=== PATIENT | male | born 1970 | race Caucasian/White ===

== ENCOUNTER 2016-11-03 16:23 | Emergency (ER) | payer SELFPAY ==
[2016-11-03 16:41] VITALS: TEMP 98.4
[2016-11-03] MEDS ORDERED: LORazepam 2 MG/ML INJ ONE (17:44)
[2016-11-03] MEDS ORDERED: LORazepam 2 MG/ML INJ IM ONE (17:44)
[2016-11-03] MEDS ORDERED: CHLORDIAZEPOXIDE 25MG PREPK#6 BTL TAKEHOME ONE ×2 (17:45)
--- NOTE | 2016-11-03 17:46 | EDPHY ---
H & P Time Seen by Provider: 11/03/16 17:44 HPI/ROS: HPI: 46-year-old male [facility] with chief concern alcohol withdrawal. He would like to detox and [facility], but did not realize they had no Librium. Presents to ED for Librium to return [facility] the [facility]. Last drink yesterday. Drinks 1 L vodka daily. Was in alcohol rehab x3 months last year in [place]. Reports tremors. Denies dizziness, headache, visual changes, seizures, visual, auditory, or tactile hallucinations, shortness of breath, chest pain, abdominal pain, nausea or vomiting. No history of alcohol withdrawal seizures. ROS:10 point review of systems is negative other than as stated in HPI Past Medical/Surgical History: Alcohol abuse Smoking Status: Former smoker Physical Exam: Temp 36.9, pulse 109, respiratory rate 20, blood pressure 148/76, 95% on room air General: Awake, alert, calm, cooperative. No acute distress. Head: Normalocephalic. Atraumatic. EENT: PERRLA. EOMI. No pallor or injection. Anicteric. No nystagmus. No injection. TMs intact bilaterally with normal landmarks. Oropharynx without redness, exudates, or lesions. Tonsils 2+ bilaterally, no exudates. Neck: Supple, nontender. No lymphadenopathy. Full range of motion. No meningismus. Respiratory: Breathing unlabored. Breath sounds equal bilaterally and clear to auscultation. No adventitious sounds. CV: Chest nontender, atraumatic. Heart rate regular and tachycardic. No murmur , distal pulses 2+ bilaterally. Brisk cap refill all extremities. GI: Abdomen soft, nontender. Bowel sounds normoactive and positive x4 quadrants. Neuro: Alert. Oriented x 3. Speech clear. Tremulous. Tongue fasciculations. Nonfocal cranial nerves throughout. Sensation intact all extremities. Skin: Skin warm, dry, intact. No rashes, abrasions, or lacerations. Skin turgor normal. Extremities: Full range of motion in all 4 extremities. Strength 5+ all extremities. Constitutional: Initial Vital Signs Temperature (C) 36.9 C 11/03/16 16:39 Heart Rate 109 H 11/03/16 16:39 Respiratory Rate 20 11/03/16 16:39 Blood Pressure 148/76 H 11/03/16 16:39 O2 Sat (%) 95 11/03/16 16:39 O2 Delivery Mode Room Air Allergies/Adverse Reactions: No Known Allergies Allergy (Unverified 04/18/13 20:13) Home Medications: Medication Instructions Recorded NK [No Known Home Meds] 11/03/16 Medical Decision Making ED Course/Re-evaluation: 46-year-old male [facility] with chief concern alcohol withdrawal. He would like to go to the [facility] and [facility]. He was in rehab for 3 months last year in [place]. Has no history of alcohol withdrawal seizures. Last drink yesterday. He is given 2 mg IM Ativan here in the ED. He is sent with take-home pack of Librium back to the [facility]. His mother is driving him. He has no dizziness, headache, vomiting, abdominal pain. He is stable for transfer to the [facility]. Differential Diagnosis: Alcohol withdrawal, depression, anxiety - Data Points Medications Given: Discontinued Medications Lorazepam (Ativan Injection) 2 mg IM EDNOW ONE Stop: 11/03/16 17:45 Last Admin: 11/03/16 17:50 Dose: 2 mg Departure - Departure Disposition: Home, Routine, Self-Care Clinical Impression: Alcohol withdrawal Qualifiers: Complication of substance-induced condition: uncomplicated Qualified Code(s): F10.230 - Alcohol dependence with withdrawal, uncomplicated Condition: Good Instructions: Alcohol Withdrawal (ED) Additional Instructions: Plan: Go directly to the [facility] Follow up with primary care when your finished at the [facility] Referrals: NONE *PRIMARY CARE P,. [Primary Care Provider] - As per Instructions [facility],. [Clinic] - As per Instructions
[2016-11-03 18:01] VITALS: BP 130/103; PULSE 103; RESP 16; O2SAT 91
== END 2016-11-03 18:00 | disposition home or self-care (01) ==
DX: F10.230 Alcohol dependence with withdrawal, uncomplicated (principal); Z87.891 Personal history of nicotine dependence
CPT/HCPCS: J2060

== ENCOUNTER 2016-11-05 20:41 | Inpatient (IN) | payer MEDICAID ==
--- NOTE | 2016-11-05 21:38 | EDPHY ---
H & P Time Seen by Provider: 11/05/16 21:37 HPI/ROS: CHIEF COMPLAINT: Yellow skin HISTORY OF PRESENT ILLNESS: This 46-year-old man has a history of alcoholism. His last drink was this past week on Thursday. He has been at detox and comes in today with nausea and when some of his companions at dinner noted that he was yellow. He continues to have nausea and decreased oral intake. He still has a tremor. He did not have any seizures. He denies hallucinating. REVIEW OF SYSTEMS: Eye: no change in vision ENT: no sore throat Cardiac: no chest pain or syncope Pulmonary: no cough or SOB Abdomen: No diarrhea. No abdominal pain. No melena. Musculoskeletal: no back pain Skin: Jaundice. Neuro: no headache, mild tremor at rest Constitutional: no fever : no urinary symptoms A comprehensive 10 point review of systems is otherwise negative aside from elements mentioned in the history of present illness. PAST MEDICAL HISTORY: Alcoholism Social history: Last drink was Thursday General Appearance: Alert and conversant, cooperative. Eyes: Icteric. ENT, Mouth: Normal mucous membranes. Respiratory: Normal respiratory effort, breath sounds equal, lungs are clear to auscultation. Cardiovascular: Regular rate and rhythm. Gastrointestinal: Abdomen is soft and non tender. Hepatomegaly. Neurological: Alert and oriented x3. Normally conversant. Face symmetric, normal movement and sensation in all extremities. Not confused and no asterixis. Mild resting tremor. Skin: Jaundiced. Musculoskeletal: No peripheral edema and no joint swelling. Psychiatric: Not agitated. Emergency Department course/MDM: Labs to include liver function tests and protime. 2212: Labs reviewed including elevated bilirubin and INR. Admit for acute liver failure with GI consult. Thrombocytopenia and coagulopathy with platelet count 39 and INR 1.9, but without signs or symptoms of active bleeding. 2226: Discussed with Gray and Pirrotta. Results discussed with the patient also at this time. Smoking Status: Former smoker Constitutional: Initial Vital Signs Temperature (C) 36.6 C 11/05/16 20:55 Heart Rate 101 H 11/05/16 20:55 Respiratory Rate 17 11/05/16 20:55 Blood Pressure 129/88 H 11/05/16 20:55 O2 Sat (%) 95 11/05/16 20:55 O2 Delivery Mode Room Air Allergies/Adverse Reactions: No Known Allergies Allergy (Unverified 10/07/13 20:13) Home Medications: Medication Instructions Recorded NK [No Known Home Meds] 11/03/16 Medical Decision Making Differential Diagnosis: Differential for hyperbilirubinemia considered including but not limited to gallbladder disease, intrinsic liver disease, hemolysis, common duct obstruction. - Data Points Laboratory Results: Laboratory Results 11/05/16 20:56 11/05/16 20:56 11/05/16 11/05/16 11/05/16 20:56 20:56 20:56 WBC 8.40 10^3/uL 10^3/uL (3.80-9.50) RBC 4.55 10^6/uL 10^6/uL (4.40-6.38) Hgb 14.9 g/dL g/dL (13.7-17.5) Hct 42.7 % % (40.0-51.0) MCV 93.8 fL fL (81.5-99.8) MCH 32.7 pg pg (27.9-34.1) MCHC 34.9 g/dL g/dL (32.4-36.7) RDW 18.4 % H % (11.5-15.2) Plt Count 39 10^3/uL L 10^3/uL (150-400) MPV 13.9 fL H fL (8.7-11.7) Neut % (Auto) 70.9 % % (39.3-74.2) Lymph % (Auto) 14.4 % L % (15.0-45.0) [place] % (Auto) 13.0 % % (4.5-13.0) Eos % (Auto) 0.7 % % (0.6-7.6) Baso % (Auto) 0.4 % % (0.3-1.7) Nucleat RBC Rel Count 0.0 % % (0.0-0.2) Absolute Neuts (auto) 5.96 10^3/uL 10^3/uL (1.70-6.50) Absolute Lymphs (auto) 1.21 10^3/uL 10^3/uL (1.00-3.00) Absolute Monos (auto) 1.09 10^3/uL H 10^3/uL (0.30-0.80) Absolute Eos (auto) 0.06 10^3/uL 10^3/uL (0.03-0.40) Absolute Basos (auto) 0.03 10^3/uL 10^3/uL (0.02-0.10) Absolute Nucleated RBC 0.00 10^3/uL 10^3/uL (0-0.01) Immature Gran % 0.6 % % (0.0-1.1) Immature Gran # 0.05 10^3/uL 10^3/uL (0.00-0.10) Platelet Estimate DECREASED L (ADEQ) PT 22.0 SEC H SEC (12.0-15.0) INR 1.91 H (0.83-1.16) Sodium 133 mEq/L L mEq/L (134-144) Potassium 3.6 mEq/L mEq/L (3.5-5.2) Chloride 93 mEq/L L mEq/L (97-110) Carbon Dioxide 26 mEq/l mEq/l (22-31) Anion Gap 14 mEq/L mEq/L (8-16) BUN 7 mg/dL mg/dL (7-23) Creatinine 0.8 mg/dL mg/dL (0.7-1.3) Estimated GFR > 60 Glucose 114 mg/dL H mg/dL (70-100) Calcium 9.8 mg/dL mg/dL (8.5-10.4) Total Bilirubin 17.4 mg/dL H mg/dL (0.1-1.4) Conjugated Bilirubin 14.2 mg/dL H mg/dL (0.0-0.5) Unconjugated Bilirubin 3.2 mg/dL H mg/dL (0.0-1.1) AST 303 IU/L H IU/L (17-59) ALT 86 IU/L H IU/L (21-72) Alkaline Phosphatase 145 IU/L H IU/L (38-126) Total Protein 8.6 g/dL H g/dL (6.3-8.2) Albumin 4.1 g/dL g/dL (3.5-5.0) Departure - Departure Disposition: [facility] Inpatient Acute Clinical Impression: Thrombocytopenia Liver failure, acute Qualifiers: Hepatic coma status: without hepatic coma Qualified Code(s): K72.00 - Acute and subacute hepatic failure without coma Condition: Serious
[2016-11-05 21:42] LABS: % IMMATURE GRANULYOCYTES 0.6 % (0.0-1.1); ABSOLUTE IMMATURE GRANULOCYTES 0.05 10^3/uL (0.00-0.10); ADD DIFF? NO; ADD MORPH? NO; ADD SCAN? NO; ATYPICAL LYMPHOCYTE FLAG 0 (0-99); FRAGMENT RBC FLAG 0 (0-99); HEMATOCRIT 42.7 % (40.0-51.0); HEMOGLOBIN 14.9 g/dL (13.7-17.5); LEFT SHIFT FLG 0 (0-99); LIPEMIA HEMOLYSIS FLAG 90 (0-99); MEAN CELL HEMOGLOBIN 32.7 pg (27.9-34.1); MEAN CELL HEMOGLOBIN CONCENTR. 34.9 g/dL (32.4-36.7); MEAN CELL VOLUME 93.8 fL (81.5-99.8); MEAN PLATELET VOLUME 13.9 fL (8.7-11.7); PLATELET CLUMPS FLAG 10 (0-99); RED BLOOD CELL COUNT 4.55 10^6/uL (4.40-6.38); RED CELL DISTRIBUTION WIDTH 18.4 % (11.5-15.2)
[2016-11-05 21:43] LABS: PLATELET COUNT 39 10^3/uL (150-400)
[2016-11-05 21:53] LABS: ALANINE AMINOTRANSFERASE 86 IU/L (21-72); ALBUMIN 4.1 g/dL (3.5-5.0); ALKALINE PHOSPHATASE 145 IU/L (38-126); ANION GAP 14 mEq/L (8-16); ASPARTATE AMINOTRANSFERASE 303 IU/L (17-59); BILIRUBIN,TOTAL 17.4 mg/dL (0.1-1.4); BILIRUBIN-CONJUGATED 14.2 mg/dL (0.0-0.5); BILIRUBIN-UNCONJUGATED 3.2 mg/dL (0.0-1.1); CALCIUM 9.8 mg/dL (8.5-10.4); CARBON DIOXIDE 26 mEq/l (22-31); CHLORIDE 93 mEq/L (97-110); CREATININE 0.8 mg/dL (0.7-1.3); GLOMERULAR FILTRATION RATE > 60; GLUCOSE 114 mg/dL (70-100); POTASSIUM 3.6 mEq/L (3.5-5.2); SODIUM 133 mEq/L (134-144); TOTAL PROTEIN 8.6 g/dL (6.3-8.2)
[2016-11-05 21:56] LABS: INR 1.91 (0.83-1.16)
[2016-11-05 22:12] LABS: PLATELET ESTIMATE DECREASED (ADEQ)
[2016-11-05] MEDS ORDERED: ACETAMINOPHEN 325 MG TAB PO PRN (23:33)
[2016-11-05] MEDS ORDERED: ONDANSETRON 4 MG/2 ML VIAL IVP PRN (23:33)
[2016-11-05] MEDS ORDERED: LORazepam 2 MG/ML INJ IVP PRN (23:36)
[2016-11-06 00:44] LABS: COLOR AMBER; LEUKOCYTE ESTERASE,URINE NEGATIVE (NEGATIVE); NITRITE,URINE NEGATIVE (NEGATIVE)
[2016-11-06 00:51] LABS: MUCUS TRACE /lpf (NONE-1+); WBC,URINE 15-25 /hpf (0-3)
[2016-11-06] MEDS: THIAMINE HCL 100 MG TAB PO SCH ×2 (03:05→09:12)
[2016-11-06] MEDS: prednisoLONE 15 MG/5 ML ORAL UD LIQ PO SCH ×2 (03:57→09:11)
--- NOTE | 2016-11-06 04:03 | PDGENHP ---
History and Physical - Chief Complaint jaundice - History of Present Illness Patient is a 46-year-old male with history of chronic alcohol use presents to the ED [facility] with complaint of jaundice. Patient states he has been trying to wean himself off alcohol recently had cut his daily drinking down to about a pt a day and on 11/03 admitted himself [facility]. Denies any alcohol intake since 11/03. He reports about 2 days ago he noticed his urine had turned orange. In addition, despite being treated for his withdrawal, he continued to feel generally unwell, had some nausea and dry heaving in his tremor appeared to be worsening. Today, people he was speaking with at the [facility] told him he appeared yellow, so he came to the [facility] ED for further evaluation. He denies any associated fevers or chills, has not had any coughing congestion, significant abdominal pain, chest pain, diarrhea or dysuria. Last BM was today and normal in consistency. Denies any history of IV drug use. On arrival to the ED patient was afebrile hemodynamically stable. Labs revealed markedly elevated bilirubins, mild transaminitis. C BC showed normal H &H, but significant thrombocytopenia and coags were also elevated. He was then admitted to the hospital service for further management. History Information - Allergies/Home Medication List Allergies/Adverse Reactions: No Known Allergies Allergy (Unverified 04/18/13 20:13) Home Medications: NK [No Known Home Meds] 11/03/16 [Last Taken Unknown] I have personally reviewed and updated: family history, medical history, social history, surgical history - Past Medical History Additional medical history: Chronic heavy alcohol use - Surgical History Additional surgical history: left shoulder arthroscopy - Family History Additional family history: father: Alcoholic, colon cancer - Social History Smoking Status: Former smoker (quit 13 years, smoker x 15 years) Alcohol Use: Heavy (1 pint/day, last drink reported 11/03. Previously up to 750ml /day) Drug Use: None Additional social history: patient currently lives with his parents, works part- time Review of Systems ROS: 10pt was reviewed & negative except for what was stated in HPI & below Physical Exam Temp Pulse Resp BP Pulse Ox 36.7 C 102 H 18 147/90 H 94 11/06/16 00:41 11/06/16 00:41 11/06/16 00:41 11/06/16 00:41 11/06/16 00:41 Constitutional: no apparent distress, not in pain, other ( jaundiced) Eyes: PERRL, EOMI, icteric sclera Ears, Nose, Mouth, Throat: moist mucous membranes, hearing normal, ears appear normal, no oral mucosal ulcers Cardiovascular: regular rate and rhythym, no murmur, rub, or gallop, pulses symmetric bilaterally, No JVD, No edema Peripheral Pulses: 2+: dorsalis-pedis (R), dorsalis-pedis (L) Respiratory: no respiratory distress, no rales or rhonchi, clear to auscultation Gastrointestinal: normoactive bowel sounds, soft, non-tender abdomen, no palpable masses, No nicholson's sign, No guarding, No rebound, No distension Genitourinary: no bladder fullness, no bladder tenderness Skin: warm, normal color, no rashes or abrasions, no fluctuance, no induration, other ( diffuse jaundice), No mottled Musculoskeletal: full muscle strength, no muscle tenderness, normal joint ROM, no joint effusions Neurologic: AAOx3, sensation intact bilaterally, asterixes, CN II-XII Intact, No weakness, No numbness Psychiatric: interacting appropriately, not anxious, not encephalopathic, thought process linear Lab Data & Imaging Review 11/05/16 20:56 11/05/16 20:56 WBC 8.40 10^3/uL (3.80-9.50) 11/05/16 20:56 RBC 4.55 10^6/uL (4.40-6.38) 11/05/16 20:56 Hgb 14.9 g/dL (13.7-17.5) 11/05/16 20:56 Hct 42.7 % (40.0-51.0) 11/05/16 20:56 MCV 93.8 fL (81.5-99.8) 11/05/16 20:56 MCH 32.7 pg (27.9-34.1) 11/05/16 20:56 MCHC 34.9 g/dL (32.4-36.7) 11/05/16 20:56 RDW 18.4 % (11.5-15.2) H 11/05/16 20:56 Plt Count 39 10^3/uL (150-400) L 11/05/16 20:56 MPV 13.9 fL (8.7-11.7) H 11/05/16 20:56 Neut % (Auto) 70.9 % (39.3-74.2) 11/05/16 20:56 Lymph % (Auto) 14.4 % (15.0-45.0) L 11/05/16 20:56 [place] % (Auto) 13.0 % (4.5-13.0) 11/05/16 20:56 Eos % (Auto) 0.7 % (0.6-7.6) 11/05/16 20:56 Baso % (Auto) 0.4 % (0.3-1.7) 11/05/16 20:56 Nucleat RBC Rel Count 0.0 % (0.0-0.2) 11/05/16 20:56 Absolute Neuts (auto) 5.96 10^3/uL (1.70-6.50) 11/05/16 20:56 Absolute Lymphs (auto) 1.21 10^3/uL (1.00-3.00) 11/05/16 20:56 Absolute Monos (auto) 1.09 10^3/uL (0.30-0.80) H 11/05/16 20:56 Absolute Eos (auto) 0.06 10^3/uL (0.03-0.40) 11/05/16 20:56 Absolute Basos (auto) 0.03 10^3/uL (0.02-0.10) 11/05/16 20:56 Absolute Nucleated RBC 0.00 10^3/uL (0-0.01) 11/05/16 20:56 Immature Gran % 0.6 % (0.0-1.1) 11/05/16 20:56 Immature Gran # 0.05 10^3/uL (0.00-0.10) 11/05/16 20:56 Platelet Estimate DECREASED (ADEQ) L 11/05/16 20:56 PT 22.0 SEC (12.0-15.0) H 11/05/16 20:56 INR 1.91 (0.83-1.16) H 11/05/16 20:56 Sodium 133 mEq/L (134-144) L 11/05/16 20:56 Potassium 3.6 mEq/L (3.5-5.2) 11/05/16 20:56 Chloride 93 mEq/L (97-110) L 11/05/16 20:56 Carbon Dioxide 26 mEq/l (22-31) 11/05/16 20:56 Anion Gap 14 mEq/L (8-16) 11/05/16 20:56 BUN 7 mg/dL (7-23) 11/05/16 20:56 Creatinine 0.8 mg/dL (0.7-1.3) 11/05/16 20:56 Estimated GFR > 60 11/05/16 20:56 Glucose 114 mg/dL (70-100) H 11/05/16 20:56 Calcium 9.8 mg/dL (8.5-10.4) 11/05/16 20:56 Total Bilirubin 17.4 mg/dL (0.1-1.4) H 11/05/16 20:56 Conjugated Bilirubin 14.2 mg/dL (0.0-0.5) H 11/05/16 20:56 Unconjugated Bilirubin 3.2 mg/dL (0.0-1.1) H 11/05/16 20:56 AST 303 IU/L (17-59) H 11/05/16 20:56 ALT 86 IU/L (21-72) H 11/05/16 20:56 Alkaline Phosphatase 145 IU/L (38-126) H 11/05/16 20:56 Ammonia 20.0 uMOL/L (9.0-30.0) 11/05/16 22:30 Total Protein 8.6 g/dL (6.3-8.2) H 11/05/16 20:56 Albumin 4.1 g/dL (3.5-5.0) 11/05/16 20:56 Urine Color OLIVIER 11/06/16 00:30 Urine Appearance CLEAR 11/06/16 00:30 Urine pH 7.0 (5.0-7.5) 11/06/16 00:30 Ur Specific [place] 1.018 (1.002-1.030) 11/06/16 00:30 Urine Protein 1+ (NEGATIVE) H 11/06/16 00:30 Urine Ketones NEGATIVE (NEGATIVE) 11/06/16 00:30 Urine Blood NEGATIVE (NEGATIVE) 11/06/16 00:30 Urine Nitrate NEGATIVE (NEGATIVE) 11/06/16 00:30 Urine Bilirubin POSITIVE (NEGATIVE) H 11/06/16 00:30 Urine Urobilinogen 4.0 EU (0.2-1.0) H 11/06/16 00:30 Ur Leukocyte Esterase NEGATIVE (NEGATIVE) 11/06/16 00:30 Urine RBC 1-3 /hpf (0-3) 11/06/16 00:30 Urine WBC 15-25 /hpf (0-3) H 11/06/16 00:30 Ur Epithelial Cells Not Reported 11/06/16 00:30 Urine Mucus TRACE /lpf (NONE-1+) 11/06/16 00:30 Urine Glucose NEGATIVE (NEGATIVE) 11/06/16 00:30 Visualized and Interpreted imaging results: Yes Interpretation: abdominal ultrasound: hepatic steatosis, no obvious gallstones , biliary pathology Assessment & Plan Assessment: patient is a 46-year-old male with a history of chronic heavy alcohol use reports last use was 11/03 who [facility] with complaint of jaundice. ED evaluation reveals acute liver failure presumed to be acute alcoholic hepatitis. Plan: # Acute liver failure Patient's labs are consistent with acute liver failure, given his history is presumed to be secondary to acute alcoholic hepatitis. Abdominal ultrasound does not reveal any obvious gallstones, or biliary pathology. He denies any new medicines or significant tylenol use. Based on presenting labs, MELD score is 14 , Maddrey score 63, so will initiate prednisolone. GI has been contacted and will evalute the patient in the AM. Will check acute hepatitis panel, acetaminophen level, drug screen. # thrombocytopenia, coagulopathy Likely related to his acute liver failure. No obvious signs of bleeding, but will monitor cbc, coags closely. # chronic alcohol use, acute alcohol withdrawal Patient states last drink was on 11/03, but he does still appear mildly tremulous on exam. Will monitor on CIWA, provide prn ativan and supplement folate, thiamine, mvn. # dispo: will likely require > 2 MN inpatient stay # gen: NPO DVT ppx: scds only Full code
[2016-11-06 05:50] LABS: % IMMATURE GRANULYOCYTES 0.6 % (0.0-1.1); ABSOLUTE IMMATURE GRANULOCYTES 0.04 10^3/uL (0.00-0.10); ADD DIFF? NO; ADD MORPH? NO; ADD SCAN? NO; ATYPICAL LYMPHOCYTE FLAG 0 (0-99); FRAGMENT RBC FLAG 0 (0-99); HEMATOCRIT 39.8 % (40.0-51.0); LEFT SHIFT FLG 0 (0-99); LIPEMIA HEMOLYSIS FLAG 90 (0-99); MEAN CELL HEMOGLOBIN 33.4 pg (27.9-34.1); MEAN CELL HEMOGLOBIN CONCENTR. 35.2 g/dL (32.4-36.7); PLATELET CLUMPS FLAG 20 (0-99); RED BLOOD CELL COUNT 4.19 10^6/uL (4.40-6.38); RED CELL DISTRIBUTION WIDTH 18.6 % (11.5-15.2)
[2016-11-06 05:52] LABS: PLATELET COUNT 39 10^3/uL (150-400)
[2016-11-06 05:57] LABS: INR 1.99 (0.83-1.16); PROTIME(PATIENT) 22.7 SEC (12.0-15.0)
[2016-11-06 05:58] LABS: APTT 34.2 SEC (23.0-38.0)
[2016-11-06 06:16] LABS: ALANINE AMINOTRANSFERASE 74 IU/L (21-72); ALBUMIN 3.6 g/dL (3.5-5.0); ALKALINE PHOSPHATASE 124 IU/L (38-126); ANION GAP 16 mEq/L (8-16); ASPARTATE AMINOTRANSFERASE 219 IU/L (17-59); BILIRUBIN,TOTAL 16.8 mg/dL (0.1-1.4); CALCIUM 9.3 mg/dL (8.5-10.4); CARBON DIOXIDE 24 mEq/l (22-31); CHLORIDE 98 mEq/L (97-110); CREATININE 0.7 mg/dL (0.7-1.3); GLOMERULAR FILTRATION RATE > 60; GLUCOSE 85 mg/dL (70-100); POTASSIUM 3.6 mEq/L (3.5-5.2); SODIUM 138 mEq/L (134-144); TOTAL PROTEIN 7.1 g/dL (6.3-8.2)
[2016-11-06 06:45] LABS: BILIRUBIN-CONJUGATED 14.1 mg/dL (0.0-0.5); BILIRUBIN-UNCONJUGATED 2.7 mg/dL (0.0-1.1)
[2016-11-06 06:46] LABS: PLATELET ESTIMATE DECREASED (ADEQ)
[2016-11-06 06:53] LABS: SPECIMEN ICTERUS 12
[2016-11-06 11:57] LABS: % SATURATION 17 % (20-55); TOTAL IRON BINDING CAPACITY 230 ug/dL (260-490)
--- NOTE | 2016-11-06 13:23 | GCON ---
[f rep st] CONSULTATION GASTROINTESTINAL CONSULTATION IMPRESSION: 1. Liver failure. This is most likely due to alcohol over usage; however, it is important to rule out other underlying liver disease. 2. Tremor. This does not appear to be withdrawal or hepatic encephalopathy, and may represent an intention or familial tremor. 3. Mild dyspepsia. RECOMMENDATIONS: 1. Agree with steroids for alcoholic hepatitis. This patient meets criteria with discriminant factor. 2. Supportive care with nutrition and hydration. 3. Lab work to rule out other underlying liver disease. 4. I suspect the patient has past the window for withdrawal, but would still observe for any evidence of this. 5. Intention tremor may be treated with propranolol. 6. Would avoid using Tylenol in this patient. 7. PO Protonix. HISTORY OF PRESENT ILLNESS: The patient is a 46-year-old male with a longstanding history of alcohol over usage, more recently between a pint and a quart of vodka daily. He decided to go into detox at [facility] earlier this week, was noted to be jaundice. He presented to the emergency room last night, and laboratory revealed a total bilirubin of 17.4 of which 14.2 was conjugated, AST of 303, ALT 86, alk phos 145. Ultrasound was performed that showed an enlarged echogenic liver without ascites , some borderline splenomegaly, no evidence of bile duct disease, and normal- appearing flow through the portal vein. The patient has also complained of some minimal dyspepsia which improves with meals. The patient denies any previous history of jaundice. He has had issues with withdrawal in the past, but does not feel he is withdrawing actively. FAMILY HISTORY: Positive for an uncle who had liver failure due to alcoholism. PAST MEDICAL HISTORY: Basically negative. HOME MEDICATIONS: None. ALLERGIES: None. PHYSICAL EXAMINATION: GENERAL: Reveals an icteric male who is jaundice in no acute distress. ABDOMEN: Soft, slightly obese. It is nontender. Liver span is 2 fingerbreadths below the costal margin with smooth edge. Mild splenomegaly is noted. SKIN: There are no stigmata of chronic liver disease on skin exam. NEUROLOGIC: Shows some tremor in the hands. LABORATORIES: As noted in History of Present Illness. /[id number]/MODL MTDD
[2016-11-06] MEDS: PANTOPRAZOLE SODIUM 40 MG TAB PO SCH (13:29)
[2016-11-06] MEDS: ONDANSETRON DISINTEGRATING 4 MG TAB PO PRN ×2 (13:31→21:42)
--- NOTE | 2016-11-06 17:35 | HOSPPROG ---
Hospitalist Progress Note Assessment/Plan: assessment: 46-year-old male presenting with acute alcohol-induced hepatitis and fulminant hepatic failure Plan: 1. Alcohol induced hepatitis. Acute, right upper quadrant pain and tenderness with AST to ALT ratio greater than 2 1 in the setting of alcohol abuse -continues to have some ongoing right upper quadrant pain, improved after steroids -continue prednisolone, day 2 -continue to monitor LFTs -abdominal ultrasound demonstrating steatosis versus hepatitis without any biliary ductal dilatation 2. Fulminant hepatic failure. Acute, evidenced by severe thrombocytopenia, coagulopathy with elevated INR, severe hyperbilirubinemia -appreciate GI consultation by Dr. Swanson -additional labs sent to rule out other causes of liver failure -recommend complete alcohol cessation -continue monitor liver panel, patient is unsafe for discharge home as his bilirubin level has yet to significantly downtrend, continue to monitor INR and platelet count 3. acute alcohol withdrawal. Evidence by tremulousness and initial tachycardia , patient also has an underlying chronic tremor which may be secondary to chronic nerve damage from alcoholism, difficult to discern from his acute withdrawal, would recommend monitoring for autonomic signs such as tachycardia or hypertension -last drink was greater than 4 days ago, anticipate that alcohol clearance in his system may be somewhat impaired given his underlying liver failure -discussed with nurse, will hold on Ativan at this time given that the patient is not tachycardic -continue monitor on CIWA score Diet. Regular Prophylaxis. Moderate risk patient, currently coagulopathic and risk of bleed Code. Full Disposition. Anticipated discharge is 11/07 versus 11/08, pending stabilization of above. Subjective: Counseled patient regarding his diagnosis of liver failure and hepatitis, necessity of complete alcohol cessation, need to discern the difference between his chronic tremor and actual alcohol withdrawal Objective: Vital Signs Temp Pulse Resp BP Pulse Ox 36.9 C 94 16 125/77 H 94 11/06/16 15:44 11/06/16 15:44 11/06/16 15:44 11/06/16 15:44 11/06/16 15:44 Laboratory Results 11/06/16 05:37 11/06/16 05:37 11/05/16 11/06/16 11/07/16 05:59 05:59 05:59 Intake Total 360 Output Total 225 Balance -225 360 PT 22.7 SEC (12.0-15.0) H 11/06/16 05:37 INR 1.99 (0.83-1.16) H 11/06/16 05:37 - Time Spent With Patient Time Spent with Patient: greater than 35 minutes Time Spent with Patient: Greater than 35 minutes spent on this patients care, greater than 50% of time spent counseling, educating, and coordinating care regarding the above mentioned plan. - Physical Exam Constitutional: not in pain, chronically ill appearing, uncomfortable Eyes: icteric sclera Cardiovascular: No systolic murmur, No irregularly irregular, No tachycardia, No edema Respiratory: no respiratory distress, no rales or rhonchi, clear to auscultation Gastrointestinal: normoactive bowel sounds, soft, non-tender abdomen, no palpable masses, No ascites Skin: other ( visible jaundice) Neurologic: No asterixes ( bilateral upper extremity tremulousness) Psychiatric: interacting appropriately, not anxious, not encephalopathic, thought process linear ICD10 Worksheet Patient Problems: Problems Problem Status Onset Thrombocytopenia Acute Liver failure, acute Acute
[2016-11-06] MEDS: LORazepam 1 MG TAB PO PRN ×2 (17:49→21:42)
[2016-11-06] MEDS: TEMAZEPAM 15 MG CAP PO PRN (23:23)
[2016-11-07] MEDS: LORazepam 1 MG TAB PO PRN ×2 (03:40→19:54)
[2016-11-07 05:23] LABS: HEMATOCRIT 39.2 % (40.0-51.0); HEMOGLOBIN 13.7 g/dL (13.7-17.5); MEAN CELL HEMOGLOBIN 33.3 pg (27.9-34.1); MEAN CELL HEMOGLOBIN CONCENTR. 34.9 g/dL (32.4-36.7); MEAN CELL VOLUME 95.4 fL (81.5-99.8); RED BLOOD CELL COUNT 4.11 10^6/uL (4.40-6.38); RED CELL DISTRIBUTION WIDTH 19.1 % (11.5-15.2)
[2016-11-07 06:10] LABS: ALANINE AMINOTRANSFERASE 66 IU/L (21-72); ALBUMIN 3.2 g/dL (3.5-5.0); ALKALINE PHOSPHATASE 104 IU/L (38-126); ANION GAP 12 mEq/L (8-16); ASPARTATE AMINOTRANSFERASE 144 IU/L (17-59); BILIRUBIN,TOTAL 16.9 mg/dL (0.1-1.4); CARBON DIOXIDE 25 mEq/l (22-31); CHLORIDE 100 mEq/L (97-110); CREATININE 0.8 mg/dL (0.7-1.3); GLOMERULAR FILTRATION RATE > 60; GLUCOSE 94 mg/dL (70-100); POTASSIUM 3.4 mEq/L (3.5-5.2); SODIUM 137 mEq/L (134-144); TOTAL PROTEIN 6.5 g/dL (6.3-8.2)
[2016-11-07 06:28] LABS: SPECIMEN ICTERUS 13
[2016-11-07 06:40] LABS: BILIRUBIN-CONJUGATED 14.2 mg/dL (0.0-0.5); BILIRUBIN-UNCONJUGATED 2.7 mg/dL (0.0-1.1)
[2016-11-07 07:59] LABS: INR 2.15 (0.83-1.16); PROTIME(PATIENT) 24.2 SEC (12.0-15.0)
[2016-11-07] MEDS: PANTOPRAZOLE SODIUM 40 MG TAB PO SCH (08:06)
[2016-11-07] MEDS: THIAMINE HCL 100 MG TAB PO SCH (08:06)
[2016-11-07] MEDS: prednisoLONE 15 MG/5 ML ORAL UD LIQ PO SCH (08:06)
--- NOTE | 2016-11-07 11:18 | HOSPPROG ---
Hospitalist Progress Note Assessment/Plan: # acute hepatitis, suspect d/t etOH but LFT pattern atypical - DF 73 - very high - c/b thrombocytopenia, coagulopathy - cont prednisolone - other serologies pending, appreciate GI # etOH w/d - cont CIWA/thiamine ## high risk given degree of liver failure Subjective: no abd pain; received ativan this morning Objective: Vital Signs Temp Pulse Resp BP Pulse Ox 36.9 C 75 17 108/72 89 L 11/07/16 08:00 11/07/16 08:00 11/07/16 08:00 11/07/16 08:00 11/07/16 08:00 Laboratory Results 11/07/16 04:52 11/07/16 04:52 11/06/16 11/07/16 11/08/16 05:59 05:59 05:59 Intake Total 710 Output Total 225 350 Balance -225 360 PT 24.2 SEC (12.0-15.0) H 11/07/16 07:40 INR 2.15 (0.83-1.16) H 11/07/16 07:40 - Physical Exam Constitutional: other (jaundiced) Eyes: icteric sclera Cardiovascular: regular rate and rhythym, no murmur, rub, or gallop Respiratory: no respiratory distress, no rales or rhonchi, clear to auscultation Gastrointestinal: normoactive bowel sounds, soft, non-tender abdomen, no palpable masses ICD10 Worksheet Patient Problems: Problems Problem Status Onset Liver failure, acute Acute Thrombocytopenia Acute
[2016-11-07 17:33] LABS: ALPHA-1-ANTITRYPSIN SERUM 222 mg/dL (100 - 190)
[2016-11-07] MEDS: TEMAZEPAM 15 MG CAP PO PRN (22:57)
[2016-11-08 05:38] LABS: HEMOGLOBIN 13.3 g/dL (13.7-17.5); MEAN CELL HEMOGLOBIN 33.7 pg (27.9-34.1); MEAN CELL VOLUME 96.2 fL (81.5-99.8); RED BLOOD CELL COUNT 3.95 10^6/uL (4.40-6.38); RED CELL DISTRIBUTION WIDTH 19.4 % (11.5-15.2)
[2016-11-08 06:00] LABS: INR 2.01 (0.83-1.16); PROTIME(PATIENT) 22.9 SEC (12.0-15.0)
[2016-11-08 06:03] LABS: ALANINE AMINOTRANSFERASE 62 IU/L (21-72); ALBUMIN 3.2 g/dL (3.5-5.0); ALKALINE PHOSPHATASE 98 IU/L (38-126); ANION GAP 14 mEq/L (8-16); ASPARTATE AMINOTRANSFERASE 124 IU/L (17-59); BILIRUBIN,TOTAL 17.4 mg/dL (0.1-1.4); CALCIUM 8.7 mg/dL (8.5-10.4); CARBON DIOXIDE 25 mEq/l (22-31); CHLORIDE 100 mEq/L (97-110); CREATININE 0.7 mg/dL (0.7-1.3); GLOMERULAR FILTRATION RATE > 60; GLUCOSE 104 mg/dL (70-100); POTASSIUM 3.5 mEq/L (3.5-5.2); SODIUM 139 mEq/L (134-144); TOTAL PROTEIN 6.7 g/dL (6.3-8.2)
[2016-11-08 06:09] LABS: SPECIMEN ICTERUS 14
[2016-11-08 06:15] LABS: BILIRUBIN-CONJUGATED 14.8 mg/dL (0.0-0.5); BILIRUBIN-UNCONJUGATED 2.6 mg/dL (0.0-1.1)
[2016-11-08] MEDS: THIAMINE HCL 100 MG TAB PO SCH (08:33)
[2016-11-08] MEDS: PANTOPRAZOLE SODIUM 40 MG TAB PO SCH (08:33)
[2016-11-08] MEDS: prednisoLONE 15 MG/5 ML ORAL UD LIQ PO SCH (08:34)
--- NOTE | 2016-11-08 11:49 | HOSPPROG ---
Hospitalist Progress Note Assessment/Plan: # acute hepatitis, suspect d/t etOH but LFT pattern more typical of cholestasis - DF 73 - very high - c/b thrombocytopenia, coagulopathy - cont prednisolone - some serologis pending # etOH w/d - cont CIWA/thiamine ## high risk given degree of liver failure Subjective: no acute events; no abd edema Objective: Vital Signs Temp Pulse Resp BP Pulse Ox 36.6 C 69 16 108/64 90 L 11/08/16 07:18 11/08/16 07:18 11/08/16 07:18 11/08/16 07:18 11/08/16 07:18 Laboratory Results 11/08/16 05:26 11/08/16 05:26 11/07/16 11/08/16 11/09/16 05:59 05:59 05:59 Intake Total 710 1000 Output Total 350 500 400 Balance 360 500 -400 PT 22.9 SEC (12.0-15.0) H 11/08/16 05:26 INR 2.01 (0.83-1.16) H 11/08/16 05:26 - Physical Exam Constitutional: no apparent distress, other (jaundice) Eyes: icteric sclera Cardiovascular: regular rate and rhythym, no murmur, rub, or gallop Respiratory: no respiratory distress, no rales or rhonchi, clear to auscultation Gastrointestinal: normoactive bowel sounds, soft, non-tender abdomen, other ( liver palpated) ICD10 Worksheet Patient Problems: Problems Problem Status Onset Thrombocytopenia Acute Liver failure, acute Acute
[2016-11-08] MEDS: LORazepam 1 MG TAB PO PRN ×2 (12:59→19:42)
[2016-11-08 13:43] LABS: SMOOTH MUSCLE ANTIBODIES SERUM Negative (Negative)
[2016-11-08] MEDS: TEMAZEPAM 15 MG CAP PO PRN (23:17)
[2016-11-09 05:25] LABS: HEMATOCRIT 40.1 % (40.0-51.0); HEMOGLOBIN 13.8 g/dL (13.7-17.5); MEAN CELL HEMOGLOBIN 33.3 pg (27.9-34.1); MEAN CELL HEMOGLOBIN CONCENTR. 34.4 g/dL (32.4-36.7); MEAN CELL VOLUME 96.9 fL (81.5-99.8); RED BLOOD CELL COUNT 4.14 10^6/uL (4.40-6.38); RED CELL DISTRIBUTION WIDTH 19.9 % (11.5-15.2)
[2016-11-09 05:40] LABS: INR 1.91 (0.83-1.16)
[2016-11-09 05:42] LABS: ALANINE AMINOTRANSFERASE 74 IU/L (21-72); ALKALINE PHOSPHATASE 105 IU/L (38-126); ANION GAP 11 mEq/L (8-16); ASPARTATE AMINOTRANSFERASE 120 IU/L (17-59); BILIRUBIN,TOTAL 16.5 mg/dL (0.1-1.4); CALCIUM 8.8 mg/dL (8.5-10.4); CARBON DIOXIDE 27 mEq/l (22-31); CHLORIDE 101 mEq/L (97-110); CREATININE 0.7 mg/dL (0.7-1.3); GLOMERULAR FILTRATION RATE > 60; GLUCOSE 105 mg/dL (70-100); POTASSIUM 3.9 mEq/L (3.5-5.2); SODIUM 139 mEq/L (134-144); TOTAL PROTEIN 6.8 g/dL (6.3-8.2)
[2016-11-09 05:47] LABS: SPECIMEN ICTERUS 14
[2016-11-09 05:54] LABS: BILIRUBIN-CONJUGATED 14.1 mg/dL (0.0-0.5); BILIRUBIN-UNCONJUGATED 2.4 mg/dL (0.0-1.1)
[2016-11-09] MEDS: PANTOPRAZOLE SODIUM 40 MG TAB PO SCH (07:49)
[2016-11-09] MEDS: THIAMINE HCL 100 MG TAB PO SCH (07:49)
[2016-11-09] MEDS: prednisoLONE 15 MG/5 ML ORAL UD LIQ PO SCH (07:50)
[2016-11-09] MEDS: LORazepam 1 MG TAB PO PRN ×3 (08:25→20:04)
--- NOTE | 2016-11-09 08:29 | HOSPPROG ---
Hospitalist Progress Note Assessment/Plan: # acute hepatitis, suspect d/t etOH: INR trending down - DF 73 - very high - c/b thrombocytopenia, coagulopathy - cont prednisolone - only RPATIBHA pending # etOH w/d - cont CIWA/thiamine ## high risk given degree of liver failure Subjective: some anxiety today Objective: Vital Signs Temp Pulse Resp BP Pulse Ox 36.9 C 70 16 105/63 90 L 11/09/16 07:41 11/09/16 07:41 11/09/16 07:41 11/09/16 07:41 11/09/16 07:41 Laboratory Results 11/09/16 05:11 11/09/16 05:11 11/08/16 11/09/16 11/10/16 05:59 05:59 05:59 Intake Total 1000 800 Output Total 500 1350 Balance 500 -550 PT 22.0 SEC (12.0-15.0) H 11/09/16 05:11 INR 1.91 (0.83-1.16) H 11/09/16 05:11 - Physical Exam Constitutional: other (jaundiced) Eyes: icteric sclera Cardiovascular: regular rate and rhythym, no murmur, rub, or gallop Respiratory: no respiratory distress, no rales or rhonchi, clear to auscultation Gastrointestinal: normoactive bowel sounds, soft, non-tender abdomen, other ( mild HM) ICD10 Worksheet Patient Problems: Problems Problem Status Onset Thrombocytopenia Acute Liver failure, acute Acute
[2016-11-09] MEDS: TEMAZEPAM 15 MG CAP PO PRN (23:15)
[2016-11-10 05:14] LABS: ADD DIFF? YES; ADD MORPH? NO; ADD SCAN? NO; ATYPICAL LYMPHOCYTE FLAG 10 (0-99); FRAGMENT RBC FLAG 20 (0-99); HEMATOCRIT 39.3 % (40.0-51.0); HEMOGLOBIN 13.7 g/dL (13.7-17.5); LEFT SHIFT FLG 10 (0-99); LIPEMIA HEMOLYSIS FLAG 90 (0-99); MEAN CELL HEMOGLOBIN 33.6 pg (27.9-34.1); MEAN CELL HEMOGLOBIN CONCENTR. 34.9 g/dL (32.4-36.7); MEAN CELL VOLUME 96.3 fL (81.5-99.8); MEAN PLATELET VOLUME 13.1 fL (8.7-11.7); PLATELET CLUMPS FLAG 0 (0-99); PLATELET COUNT 127 10^3/uL (150-400); RED BLOOD CELL COUNT 4.08 10^6/uL (4.40-6.38); RED CELL DISTRIBUTION WIDTH 19.8 % (11.5-15.2)
[2016-11-10 05:21] LABS: INR 1.99 (0.83-1.16); PROTIME(PATIENT) 22.7 SEC (12.0-15.0)
[2016-11-10 05:30] LABS: ALANINE AMINOTRANSFERASE 75 IU/L (21-72); ALBUMIN 2.9 g/dL (3.5-5.0); ALKALINE PHOSPHATASE 108 IU/L (38-126); ANION GAP 9 mEq/L (8-16); ASPARTATE AMINOTRANSFERASE 116 IU/L (17-59); BILIRUBIN,TOTAL 14.9 mg/dL (0.1-1.4); CALCIUM 8.8 mg/dL (8.5-10.4); CARBON DIOXIDE 26 mEq/l (22-31); CHLORIDE 101 mEq/L (97-110); CREATININE 0.6 mg/dL (0.7-1.3); GLOMERULAR FILTRATION RATE > 60; GLUCOSE 94 mg/dL (70-100); POTASSIUM 3.7 mEq/L (3.5-5.2); SODIUM 136 mEq/L (134-144); TOTAL PROTEIN 6.6 g/dL (6.3-8.2)
[2016-11-10 05:42] LABS: MACROCYTES 1+; PLATELET ESTIMATE ADEQUATE (ADEQ); TARGET CELLS 1+
[2016-11-10 05:49] LABS: BILIRUBIN-CONJUGATED 12.7 mg/dL (0.0-0.5); BILIRUBIN-UNCONJUGATED 2.2 mg/dL (0.0-1.1)
[2016-11-10 05:51] LABS: SPECIMEN ICTERUS 11
[2016-11-10] MEDS: prednisoLONE 15 MG/5 ML ORAL UD LIQ PO SCH (09:27)
[2016-11-10] MEDS: PANTOPRAZOLE SODIUM 40 MG TAB PO SCH (09:28)
[2016-11-10] MEDS: THIAMINE HCL 100 MG TAB PO SCH (09:28)
[2016-11-10] MEDS: LORazepam 1 MG TAB PO PRN ×4 (09:31→22:50)
--- NOTE | 2016-11-10 13:57 | HOSPPROG ---
Hospitalist Progress Note Assessment/Plan: # acute hepatitis, suspect d/t etOH: labs still elevated - DF 73 - very high - c/b thrombocytopenia (improving), coagulopathy - cont prednisolone - only PRATIBHA pending # etOH w/d - cont CIWA/thiamine # dispo - likely tomorrow; f/u with Dr Gray Subjective: no complaints today Objective: Vital Signs Temp Pulse Resp BP Pulse Ox 36.8 C 75 16 116/75 92 11/10/16 11:22 11/10/16 11:22 11/10/16 11:22 11/10/16 11:22 11/10/16 11:22 Laboratory Results 11/10/16 04:55 11/10/16 04:55 11/09/16 11/10/16 11/11/16 05:59 05:59 05:59 Intake Total 800 950 Output Total 1350 2 Balance -550 948 PT 22.7 SEC (12.0-15.0) H 11/10/16 04:55 INR 1.99 (0.83-1.16) H 11/10/16 04:55 - Physical Exam Constitutional: other (jaundiced) Eyes: icteric sclera Cardiovascular: regular rate and rhythym, no murmur, rub, or gallop Respiratory: no respiratory distress, no rales or rhonchi, clear to auscultation Gastrointestinal: normoactive bowel sounds, soft, non-tender abdomen, no palpable masses ICD10 Worksheet Patient Problems: Problems Problem Status Onset Thrombocytopenia Acute Liver failure, acute Acute
[2016-11-10] MEDS: TEMAZEPAM 15 MG CAP PO PRN (22:50)
[2016-11-11] MEDS: LORazepam 1 MG TAB PO PRN ×2 (04:45→13:21)
[2016-11-11 05:11] LABS: % IMMATURE GRANULYOCYTES 2.3 % (0.0-1.1); ABSOLUTE IMMATURE GRANULOCYTES 0.27 10^3/uL (0.00-0.10); ADD DIFF? NO; ADD MORPH? NO; ADD SCAN? NO; ATYPICAL LYMPHOCYTE FLAG 0 (0-99); FRAGMENT RBC FLAG 20 (0-99); HEMATOCRIT 38.8 % (40.0-51.0); HEMOGLOBIN 13.7 g/dL (13.7-17.5); LEFT SHIFT FLG 20 (0-99); LIPEMIA HEMOLYSIS FLAG 90 (0-99); MEAN CELL HEMOGLOBIN 33.8 pg (27.9-34.1); MEAN CELL HEMOGLOBIN CONCENTR. 35.3 g/dL (32.4-36.7); MEAN CELL VOLUME 95.8 fL (81.5-99.8); MEAN PLATELET VOLUME 12.8 fL (8.7-11.7); PLATELET CLUMPS FLAG 0 (0-99); PLATELET COUNT 160 10^3/uL (150-400); RED BLOOD CELL COUNT 4.05 10^6/uL (4.40-6.38); RED CELL DISTRIBUTION WIDTH 19.8 % (11.5-15.2)
[2016-11-11 05:23] LABS: INR 1.78 (0.83-1.16); PROTIME(PATIENT) 20.8 SEC (12.0-15.0)
[2016-11-11 05:26] LABS: ALANINE AMINOTRANSFERASE 81 IU/L (21-72); ALBUMIN 3.1 g/dL (3.5-5.0); ALKALINE PHOSPHATASE 114 IU/L (38-126); ANION GAP 12 mEq/L (8-16); ASPARTATE AMINOTRANSFERASE 126 IU/L (17-59); BILIRUBIN,TOTAL 14.9 mg/dL (0.1-1.4); CALCIUM 8.8 mg/dL (8.5-10.4); CARBON DIOXIDE 25 mEq/l (22-31); CHLORIDE 102 mEq/L (97-110); CREATININE 0.6 mg/dL (0.7-1.3); GLOMERULAR FILTRATION RATE > 60; GLUCOSE 95 mg/dL (70-100); POTASSIUM 3.9 mEq/L (3.5-5.2); SODIUM 139 mEq/L (134-144); TOTAL PROTEIN 6.9 g/dL (6.3-8.2)
[2016-11-11 05:32] LABS: SPECIMEN ICTERUS 12
[2016-11-11 05:39] LABS: BILIRUBIN-CONJUGATED 12.5 mg/dL (0.0-0.5); BILIRUBIN-UNCONJUGATED 2.4 mg/dL (0.0-1.1)
[2016-11-11 07:14] VITALS: BP 115/70; PULSE 63; RESP 14; TEMP 97.8; O2SAT 93
[2016-11-11] MEDS: THIAMINE HCL 100 MG TAB PO SCH (10:08)
[2016-11-11] MEDS: PANTOPRAZOLE SODIUM 40 MG TAB PO SCH (10:08)
[2016-11-11] MEDS: prednisoLONE 15 MG/5 ML ORAL UD LIQ PO SCH (10:08)
--- NOTE | 2016-11-11 11:44 | GDS ---
[f rep st] DISCHARGE SUMMARY ALL DIAGNOSES: 1. Acute severe alcoholic hepatitis. 2. Alcoholic abuse and withdrawal. 3. Thrombocytopenia. 4. Coagulopathy. ALL CONSULTATIONS: Dr. Gray from Gastroenterology. HOSPITAL COURSE: A 46-year-old man with history of severe alcohol abuse, presented with severe alco holic hepatitis. Discriminant function about 73 on admission. Seen [address] Dr[address] Gray. All other serol ogies were negative for causes of acute hepatitis. Started on prednisolone. He has had minor impro vement in his labs, INR on the day of discharge is 1.78, total bilirubin is 14.9. His thrombocytope ryder has resolved. Initial platelets were 39, up to 160 on the day of discharge. His course has not been complicated by encephalopathy or volume overload. I have discussed both with him as well as h is mother and father at length on the day of discharge, regarding the need for absolute alcohol abst inence. Given him a prescription for Ativan #10 as he has mild ongoing anxiety and alcohol, though I do not think this will be a good long-term medication for him. I gave him a prescription for a to edgar of 28 days of prednisolone after which he will need to taper. He will need to follow up with Dr Travis Gray. I will apprise Dr. Gray of his discharge today. I have also given him warning signs fo r which to return to the emergency department including hematemesis, volume overload, encephalopathy . Plan on discharge is to stay with his parents for a few days, then go into long-term sober living [facility]. BILLING: I spent more than 30 minutes on the day of discharge coordinating care. /[id number]/MODL
[2016-11-11 15:29] LABS: CERULOPLASMIN SERUM 30 mg/dL (18-36)
== END 2016-11-11 14:30 | disposition home or self-care (01) | DRG 433 ==
LOC: F3E 11-06 00:25
PROVIDERS: ADMIT Internal Medicine; ATTEND Internal Medicine
DX: K70.10 Alcoholic hepatitis without ascites (principal); F10.239 Alcohol dependence with withdrawal, unspecified; D69.1 Qualitative platelet defects; Z87.891 Personal history of nicotine dependence
CPT/HCPCS: 82103-90; 82390-90; 86255-90; G0472; G0480

== ENCOUNTER 2017-06-11 09:33 | Emergency (ER) | payer MEDICAID ==
[2017-06-11 09:43] VITALS: RESP 18
[2017-06-11] MEDS ORDERED: TDAP ADULT 0.5 ML INJ (BOOSTRIX) IM ONE (09:44)
--- NOTE | 2017-06-11 09:46 | EDPHY ---
H & P Stated Complaint: Stubbed L big toe x 1 wk;smashed L ring finger yesterday Time Seen by Provider: 06/11/17 09:45 HPI/ROS: HPI: This is a 46-year-old male presents with Chief Complaint: Stubbed L big toe x 1 wk;smashed L ring finger yesterday Location: Left ring finger, left big toe Quality: Injury Duration: Several days ago Signs and Symptoms: No bleeding, no radiation, no numbness, no weakness, no tingling, no decreased range of motion, + swelling, + pain, + bruising Timing: Acute Severity: [id number] Context: History of daily alcohol use presents with accidentally stopping his left big toe approximately 1 week ago on a piece of wood. He reports that his toenail is falling off but there is no pain/decreased range of motion/ paresthesias. He has a history of fungal infection in that toe as well as toenail avulsion several times over the years. He has been putting a Band-Aid on it to keep the toenail on to protect the nail bed. Yesterday he was cutting wood, when the saw kicked back, and his left ring finger was wedged in between the saw and piece of wood. He felt immediate pain that was nonradiating in nature, with accompanied swelling and later bruising. decreased range of motion/ paresthesias. Right-hand dominant. Denies any blood thinner use. Modifying Factors: Local wound care, ice application Comment: ROS: see HPI Constitutional: No fever, no chills, no weight loss Eyes: No blurred vision Respiratory: No shortness of breath, no cough Cardiovascular: No chest pain Gastrointestinal: No nausea, no vomiting no diarrhea Genitourinary: No dysuria Extremities: No myalgias Neurologic: No weakness, no numbness Skin: No rashes Hematologic: No bruising, no bleeding MEDICAL/SURGICAL/SOCIAL HISTORY: Medical history: Alcoholism Surgical history: Denies Social history: Employed. CONSTITUTIONAL: Adult white male, awake and alert, no obvious distress HEENT: Atraumatic and normocephalic, PERRL, EOMI. Tympanic membranes clear. Oropharynx clear, no exudate and moist pink mucosa. Airway patent. No lymphadenopathy. No meningismus. Cardiovascular: Normal S1/S2, regular rate, regular rhythm, without murmur rub or gallop. PULMONARY/CHEST: Symmetrical and nontender. Clear to auscultation bilaterally. Good air movement. No accessory muscle usage. ABDOMEN: Soft, nondistended, nontender, no rebound, no guarding, no peritoneal signs, no masses or organomegaly. No CVAT. EXTREMITIES: 2/2 radial/DP/PT pulses, strength 5/5, left ring fingertip no nail injury; mild swelling and ecchymosis noted distal to the DIP joint with small area of skin avulsion measuring approximately 1/8 cm. DIP/PIP joint has full flexion and extension. Good light touch sensation. Left great toe shows partial nail avulsion approximately 25% with no bleeding; toe has full range of motion with good light touch sensation. no deformities, no clubbing, no cyanosis or edema. NEUROLOGICAL: no focal neuro deficits. GCS 15. SKIN: Warm and dry, no erythema. no rash. Good capillary refill. Source: Patient Exam Limitations: No limitations - Personal History Current Tetanus Diphtheria and Acellular Pertussis (TDAP): No - Medical/Surgical History Hx Asthma: No Hx Chronic Respiratory Disease: No Hx Diabetes: No Hx Cardiac Disease: No Hx Renal Disease: No Hx Cirrhosis: No Hx Alcoholism: Yes Hx HIV/AIDS: No Hx Splenectomy or Spleen Trauma: No Other PMH: PMHx: alcoholism - Social History Smoking Status: Former smoker Constitutional: Initial Vital Signs Temperature (C) 36.8 C 06/11/17 09:40 Heart Rate 82 06/11/17 09:40 Respiratory Rate 18 06/11/17 09:40 Blood Pressure 137/97 H 06/11/17 09:40 O2 Sat (%) 98 06/11/17 09:40 O2 Delivery Mode Room Air Allergies/Adverse Reactions: No Known Allergies Allergy (Verified 06/11/17 09:37) Home Medications: Medication Instructions Recorded Amoxicillin/Clavulanate Pot 875 mg PO BID #14 tab 06/11/17 [Augmentin 875 MG TAB (*)] Medical Decision Making - Diagnostics Imaging Results: Imaging Impressions Finger X-Ray 06/11/17 09:50 Impression: Mildly comminuted nondisplaced fracture distal phalanx left fourth finger. Procedures: Procedure: Splint placement. A finger splint was applied by the Emergency Room large animal husbandry technician. After application of the splint I returned and re-examined the patient. The splint was adequately immobilizing the joint and distal to the splint the patient's circulation and sensation was intact. ED Course/Re-evaluation: Patient politely declines x-ray imaging of his left great toe. Reports that he will continue to perform local wound care. He is requesting antibiotics to prevent infection as he is prone to it. Left great toe and finger were cleaned with mild soap and water; Xeroform and clean sterile dressing applied. Patient does consent to x-ray of his left ring finger which shows nondisplaced distal phalanx fracture; finger splint placed; RICE therapy No indication for nail trephination or nail removal. Tetanus booster and Augmentin given No signs of neurovascular compromise/tenting of skin/compartment syndrome/ extremities and joints examined above and below area of concern and are neurovascularly intact. This patient was seen under the supervision of my secondary supervising physician. I evaluated care for this patient independently. Patient's presentation, labs/imaging, treatment and plan of care were discussed with secondary supervising physician. Differential Diagnosis: Differential diagnosis includes but is not limited to phalanx fracture, nail involvement, nerve injury, tendon injury, cellulitis. - Data Points Medications Given: Discontinued Medications Amoxicillin/Clavulanate Potassium (Augmentin 875mg) 875 mg PO EDNOW ONE PRN Reason: Protocol Stop: 06/11/17 09:52 Last Admin: 06/11/17 10:06 Dose: 875 mg Diphtheria/Tetanus/Acell Pertussis (Boostrix) 0.5 ml IM .ONCE ONE Stop: 06/11/17 09:45 Last Admin: 06/11/17 09:47 Dose: 0.5 ml Departure - Departure Disposition: Home, Routine, Self-Care Clinical Impression: Traumatic avulsion of nail plate of toe Qualifiers: Encounter type: initial encounter Qualified Code(s): S91.209A - Unspecified open wound of unspecified toe(s) with damage to nail, initial encounter Closed fracture of phalanx of right ring finger Qualifiers: Encounter type: initial encounter Phalanx: distal Fracture alignment: nondisplaced Qualified Code(s): S62.664A - Nondisplaced fracture of distal phalanx of right ring finger, initial encounter for closed fracture Condition: Good Instructions: Finger Fracture (ED), Paronychia (ED), Nail Avulsion (ED) Additional Instructions: Keep the dressing dry and in place for 48 hours on your left big toe. After 48 hours, you may remove the dressing; wash the site daily with mild soap and water; pat dry; then apply topical antibiotic ointment and clean sterile dressing. Take Tylenol 650 mg every 4 hours and/or Ibuprofen 600 mg every 8 hours with food as needed for pain. X-ray today shows a distal fracture that is nondisplaced in your finger. Apply ice for 30 minutes at a time; 2-3 times per day for the next 1-2 days. Keep your finger splint dry and in place until pain free. Take all of the Augmentin as prescribed until complete. If at any time you developed numbness, skin color changes, uncontrollable pain despite medications, follow up in the Emergency Room immediately. Referrals: Gautam Chery MD [Medical Doctor] - 5-7 days, if not improved Prescriptions: Amoxicillin/Clavulanate Pot [Augmentin 875 MG TAB (*)] 875 mg PO BID #14 tab
[2017-06-11] MEDS ORDERED: AMOXICILLIN/CLAVULANATE POT 875/125 MG TAB PO ONE (09:51)
[2017-06-11 11:15] VITALS: BP 143/88; PULSE 84; TEMP 98.1; O2SAT 97
== END 2017-06-11 11:33 | disposition home or self-care (01) ==
DX: S62.665A Nondisplaced fracture of distal phalanx of left ring finger, initial encounter for closed fracture (principal); S91.202A Unspecified open wound of left great toe with damage to nail, initial encounter; Z87.891 Personal history of nicotine dependence; Z23 Encounter for immunization; W31.2XXA Contact with powered woodworking and forming machines, initial encounter; Y99.8 Other external cause status; Y93.89 Activity, other specified
CPT/HCPCS: L3925